=== PATIENT | male | born 1940 | race Caucasian/White ===

== ENCOUNTER 2018-01-27 19:17 | Emergency (ER) | payer OTHER ==
[2018-01-27] MEDS ORDERED: LIDOCAINE 2% JELLY 5 ML TUBE TP ONE (20:02)
--- NOTE | 2018-01-27 21:40 | EDPHY ---
H & P Time Seen by Provider: 01/27/18 19:35 HPI/ROS: This patient tripped over furniture while visiting his son's home shortly prior to arrival and sustained an earlobe laceration he struck his ear against a window ledge. His witnessed the fall. He denies any complaints except for the injury to his earlobe. He says this causing moderate pain and moderate study bleeding that slowed with direct pressure. He felt well prior to the incident and he and with field with simple mechanical fall versus the furniture. He has no generalized headache. ROS: Constitutional: In his usual state of health prior to the fall. HEENT: No facial injuries besides the ear Musculoskeletal: No neck or back pain Neurological: He was not dazed from the incident. No LOC. No headache. No focal numbness tingling weakness. He has a slight delay between hearing and verbally responding attributable to his glioblastoma which is RN explains is unchanged from baseline at this time 7 point review of symptoms is performed and otherwise negative with exception of pertinent positives and negatives listed in HPI and ROS Past Medical/Surgical History: Glioblastoma Smoking Status: Never smoked Physical Exam: Physical exam: Vital signs are normal General: Patient is in no acute distress. HEENT: The patient has a T-shaped laceration to the right earlobe 3 cm x 3 cm in length with moderate study bleeding. There is mild cartilage injury to the pinna of the ear lobe. The external canal or her remains intact. No hemotympanum Nose atraumatic. Oropharynx: No dental trauma or malocclusion. No intraoral lacerations. Eyes: Pupils are equal and reactive to light. Extraocular motions are intact. Optic fundi: Clear with no papilledema or hemorrhage. Neck: Trachea is midline with no stridor. The patient has no midline neck tenderness and retains a full range of motion without increase in pain. Lungs: No chest wall tenderness. No increased respiratory effort Cardiac: Brisk capillary refill intact throughout Chest: Nontender. Abdomen: Soft nontender no organomegaly Back: Nontender Extremities: Atraumatic Neuro: GCS of 15. Cranial nerves II through XII grossly intact. Constitutional: Initial Vital Signs Temperature (C) 36.6 C 01/27/18 19:25 Heart Rate 76 01/27/18 19:25 Respiratory Rate 20 01/27/18 19:25 Blood Pressure 166/100 H 01/27/18 19:25 O2 Sat (%) 97 01/27/18 19:25 Allergies/Adverse Reactions: No Known Allergies Allergy (Unverified 01/27/18 19:25) Home Medications: Medication Instructions Recorded Mychal 01/27/18 MDM/Departure - MDM Procedures: The wound is 3 x 3 cm-total 6 cm in length described physical exam. The wound was copiously irrigated with saline. The wound was explored for foreign bodies and none were found. The wound was prepped and draped in the normal sterile fashion. The wound was anesthetized using 2% topical light of followed by a 50 50 mix of 0.5% bupivacaine and 1% lidocaine. The edges were reapproximated using 5 0 Prolene -9 running sutures and 7 interrupted sutures with good hemostasis and cosmesis. The patient tolerated the procedure well. There were no complications. A pressure dressing was then applied Medications Given: Discontinued Medications Lidocaine (Lidocaine 2% Jelly) 1 dustin TP EDNOW ONE Stop: 01/27/18 20:03 Last Admin: 01/27/18 20:30 Dose: 1 box ED Course/Re-evaluation: I counseled patient is regarding wound care and regarding minor head injury. Discussion: Patient with earlobe laceration without evidence of concussion or other significant head injury. No other associated injuries red flag findings. - Depart Disposition: Home, Routine, Self-Care Clinical Impression: Ear lobe laceration Qualifiers: Encounter type: initial encounter Laterality: right Qualified Code(s): S01.311A - Laceration without foreign body of right ear, initial encounter Minor head injury without loss of consciousness Qualifiers: Encounter type: initial encounter Qualified Code(s): S09.90XA - Unspecified injury of head, initial encounter Condition: Good Instructions: Head Injury (ED), Facial Laceration (ED) Additional Instructions: Diagnosis: 1. Earlobe laceration 2. Minor head injury Plan: Keep the wound clean and dry for the next 2 days. Then removed the dressing and clean daily with warm soapy water Return for suture removal and 7-10 days Return sooner for redness, discharge or any other concerns for infection. Also , return earlier if he develops significant headache, confusion or other concerns Tylenol for pain if needed. Referrals: NONE *PRIMARY CARE P,. [Primary Care Provider] - As per Instructions Alecia Macias MD [Medical Doctor] - As per Instructions
[2018-01-27 22:27] VITALS: BP 137/71
== END 2018-01-27 22:24 | disposition home or self-care (01) ==
LOC: CED 19:17
PROC: 09Q0XZZ Repair Right External Ear, External Approach (ICD-10-PCS; principal; 2018-01-27)
DX: S01.311A Laceration without foreign body of right ear, initial encounter (principal); W01.198A Fall on same level from slipping, tripping and stumbling with subsequent striking against other object, initial encounter

== ENCOUNTER → 2018-02-19 | Outpatient (CLI) | payer OTHER ==
[~2018-02-19] MED LIST: GADOBUTROL 10 ML VIAL IVP ONE
== END ==
LOC: FIMAGING 12:25
PROVIDERS: ATTEND Internal Medicine Hematology & Oncology
DX: R56.9 Unspecified convulsions (principal); Z85.841 Personal history of malignant neoplasm of brain; G93.89 Other specified disorders of brain
CPT/HCPCS: 70553; A9585